=== PATIENT | female | born 1995 | race Caucasian/White ===

== ENCOUNTER 2016-12-30 04:55 | Emergency (ER) | payer BC ==
[~2016-12-30] VITALS: Ht 165.1 cm; Wt 88.3 kg
[2016-12-30 05:04] VITALS: BP 134/68; PULSE 86; RESP 16; TEMP 98.3
[2016-12-30 05:08] VITALS: BP 134/68; PULSE 86; RESP 16; TEMP 98.3; O2SAT 99
[2016-12-30] MEDS ORDERED: NORE1TAB74 PO (05:14)
--- NOTE | 2016-12-30 05:56 | PD ---
HPI Chief Complaint: GI Complaint Time Seen by Provider: 05:08 Travel History International Travel<30 days: No Contact w/Intl Traveler<30days: No Traveled to known affect area: No History of Present Illness HPI The patient is a 21-year-old female that felt some periumbilical pain and some lumbosacral pain that worsens when she lies flat and gets better when she sits up straight. She denies any nausea, vomiting, diarrhea or fever. She denies any melanotic or bloody stools. She took some Pepto-Bismol and apparently feels better now. She denies any history of heart disease. She does not smoke , have hypertension or high cholesterol or diabetes. She is on control pills and takes them correctly. Her last missed her period was the first of this month and normal. [facility]LY [facility] Past Medical History Medical History: Denies Significant Hx Tetanus Vaccination: Unknown Influenza Vaccination: No ?: Not LMP: 12-11-16 Past Surgical History Tonsillectomy: Yes Social History Alcohol Use: Yes (occasional) Tobacco Use: No Substance Use: No Allergies-Medications (Allergen,Severity, Reaction): Coded Allergies: No Known Allergies (Unverified , 12/30/16) Reported Meds & Prescriptions Reported Meds & Active Scripts Active Reported Blisovi Fe 09/01 (Norethindrone-Ethinyl Estradiol-Fe) 1-20 Mg-Mcg Tab 1 Tab PO DAILY Review of Systems Except as stated in HPI: all other systems reviewed are Neg Physical Exam Narrative GENERAL: The patient is alert, oriented 3 in no apparent distress. Her vital signs are normal. SKIN: Focused skin assessment warm/dry. No skin rash is seen. HEAD: Atraumatic. Normocephalic. EYES: Pupils equal and round. No scleral icterus. No injection or drainage. ENT: No nasal bleeding or discharge. Mucous membranes pink and moist. NECK: Trachea midline. No JVD. CARDIOVASCULAR: Regular rate and rhythm. No murmur appreciated. RESPIRATORY: No accessory muscle use. Clear to auscultation. Breath sounds equal bilaterally. GASTROINTESTINAL: Abdomen soft, non-tender, nondistended. Hepatic and splenic margins not palpable. No guarding or rebound is present. I cannot reproduce the patient's pain by pressing on the abdomen. MUSCULOSKELETAL: No obvious deformities. No clubbing. No cyanosis. No edema. I cannot reproduce the patient's pain by pressing on the lumbosacral spine or any the muscles adjacent to the lumbosacral spine. Toe-touch is normal. Straight leg raising is normal and deep tendon reflexes are 0+1 over the patellae bilaterally and +2 on the Achilles. Pinprick is normal. NEUROLOGICAL: Awake and alert. No obvious cranial nerve deficits. Motor grossly within normal limits. Normal speech. PSYCHIATRIC: Appropriate mood and affect; insight and judgment normal. Data Data Last Documented VS Vital Signs Date Time Temp Pulse Resp B/P Pulse Ox O2 Delivery O2 Flow Rate FiO2 12/30/16 05:08 98.3 86 16 134/68 99 Orders Electrocardiogram (12/30/16 05:35) MDM Medical Decision Making Medical Screen Exam Complete: Yes Emergency Medical Condition: Yes Medical Record Reviewed: Yes Interpretation(s) The EKG shows normal sinus rhythm with a rate of 89 and is normal. Differential Diagnosis Acute coronary syndromeunlikely, GERD, ulcer pain, musculoskeletal pain, abdominal pain etiology undetermined Narrative Course The patient has abdominal pain that has resolved. She has no tenderness on the abdomen or the back. She was worried about this possibly being heart disease and an EKG was done. Diagnosis Primary Impression: Abdominal pain of unknown etiology Med/Other Pt SpecificInfo: No Change to Meds Disposition: 01 DISCHARGE HOME Condition: Stable Omari Townsend MD December 30, 2016 05:56
--- NOTE | 2016-12-30 15:49 | EKG ---
Date Performed: 12/30/2016 Time Performed: 05:43:48 PTAGE: 21 years EKG: Sinus rhythm . rSr'(V1) - probable normal variant Normal ECG PREVIOUS TRACING : 12/30/2016 05.43 DOCTOR: Gina Good Interpretating Date/Time 12/30/2016 15:46:25
== END 2016-12-30 06:06 | disposition home or self-care (01) ==
LOC: PHED 04:55
DX: R10.9 Unspecified abdominal pain (principal)
CPT/HCPCS: 93005